=== PATIENT | male | born 1980 | race Caucasian/White ===

== ENCOUNTER → 2019-05-09 | Outpatient (CLI) | payer BC ==
[~2019-05-09] MED LIST: LISI-167 PO
== END | disposition home or self-care (01) ==
LOC: CFH 10:52
PROVIDERS: ATTEND Internal Medicine Cardiovascular Disease
DX: I71.2 Thoracic aortic aneurysm, without rupture (principal); I51.7 Cardiomegaly; I48.91 Unspecified atrial fibrillation
CPT/HCPCS: 93306

== ENCOUNTER → 2020-11-05 | Outpatient (CLI) | payer BC | END | disposition home or self-care (01) | LOC: CFH 14:06 | PROVIDERS: ATTEND Physician Assistant | DX: I35.8 Other nonrheumatic aortic valve disorders (principal); I47.1 Supraventricular tachycardia; I71.2 Thoracic aortic aneurysm, without rupture | CPT/HCPCS: 93306; 93356 ==